=== PATIENT | female | born 1945 ===

== ENCOUNTER 2022-06-11 12:18 | Observation (INO) ==
[2022-06-11 13:10] LABS: Basophils % 0.4 %; Eosinophils # 0.1 K/mcL (0.0-0.6); Eosinophils % 1.4 %; Hematocrit 46.3 % (35.3-44.9); Hemoglobin 15.6 g/dL (11.5-15.4); Immature Granulocytes % 0.6 % (0-4); Lymphocytes % 14.5 %; Mean Corpuscular HGB Conc 33.7 g/dL (31.6-35.5); Mean Corpuscular Hemoglobin 31.2 pg (28.0-33.3); Mean Corpuscular Volume 92.6 fL (83.0-100.0); Mean Platelet Volume 9.5 fL (9.4-12.4); Monocytes # 0.5 K/mcL (0.0-1.3); Monocytes % 7.7 %; Neutrophils # 5.3 K/mcL (1.6-8.9); Platelet Count 218 K/mcL (140-400); Red Cell Distribution Width 12.5 % (11.5-14.5); Segmented Neutrophils % 75.4 %
[2022-06-11 15:41] LABS: Calcium 10.5 mg/dL (8.6-10.3); Potassium 3.9 mEq/L (3.5-5.1)
[2022-06-11] MEDS ORDERED: Naloxone 0.4 MG/ML INJ IVP PRN (15:53)
[2022-06-12 04:10] LABS: Basophils % 0.5 %; Eosinophils # 0.1 K/mcL (0.0-0.6); Hematocrit 41.3 % (35.3-44.9); Hemoglobin 14.1 g/dL (11.5-15.4); Immature Granulocytes % 0.5 % (0-4); Lymphocytes # 1.2 K/mcL (0.6-4.6); Lymphocytes % 14.6 %; Mean Corpuscular HGB Conc 34.1 g/dL (31.6-35.5); Mean Corpuscular Hemoglobin 31.8 pg (28.0-33.3); Mean Corpuscular Volume 93.2 fL (83.0-100.0); Mean Platelet Volume 9.8 fL (9.4-12.4); Monocytes # 0.8 K/mcL (0.0-1.3); Monocytes % 10.1 %; Neutrophils # 5.8 K/mcL (1.6-8.9); Platelet Count 218 K/mcL (140-400); Red Blood Count 4.43 M/mcL (3.82-4.97); Red Cell Distribution Width 12.6 % (11.5-14.5); Segmented Neutrophils % 73.3 %; White Blood Count 7.9 K/mcL (4.3-11.1)
[2022-06-12 04:35] LABS: Calcium 9.5 mg/dL (8.6-10.3); Chol/HDL Ratio 3.2 (0-4.9); Potassium 3.5 mEq/L (3.5-5.1)
[2022-06-12] MEDS ORDERED: carvediloL 6.25 MG TABLET PO SCH (08:00)
[2022-06-12] MEDS ORDERED: hydroCHLOROthiazide 25 MG TABLET PO SCH (09:00)
[2022-06-12] MEDS ORDERED: lisinopriL 20 MG TABLET PO SCH (09:00)
[2022-06-12] MEDS ORDERED: Regadenoson 0.4 MG/5 ML SYRINGE IVP ONE (09:00)
[2022-06-12] MEDS ORDERED: Aspirin Enteric Coated 81 MG Tablet PO SCH (09:00)
[2022-06-12] MEDS ORDERED: amLODIPine 5 MG TABLET PO SCH (09:00)
[2022-06-12 10:59] VITALS: BP 137/77; PULSE 67; TEMP 98.2; O2SAT 92
== END 2022-06-12 13:37 | disposition home or self-care (01) ==
LOC: 3BNU 12:18 → EMEROOARM 12:18 → SUATTDRO 17:16 → 3BNU 18:16
PROVIDERS: ADMIT Internal Medicine; ATTEND Internal Medicine

== ENCOUNTER 2022-07-22 09:20 | Observation (INO) ==
[2022-07-22] MEDS ORDERED: 0.9 % Sodium Chloride 1,000 ML ONE ×2 (09:42→09:53)
[2022-07-22] MEDS ORDERED: *HR* FentaNYL (PF) 100 MCG/2 ML VIAL ONE (09:51)
[2022-07-22] MEDS ORDERED: Nitroglycerin 1,000 MCG/5 ML VIAL IV ONE (09:52)
[2022-07-22] MEDS ORDERED: *HR* Midazolam HCl 2 MG/2 ML VIAL ONE (09:52)
[2022-07-22] MEDS ORDERED: Iopamidol - 370 200 ML INFUS..BTL ONE ×2 (09:52→13:28)
[2022-07-22] MEDS ORDERED: *HR* Heparin 10,000 UNIT/10 ML VIAL ONE (09:52)
[2022-07-22] MEDS ORDERED: Heparin 1,000 UNITS/500 mL 500 ML ONE ×3 (09:52→13:41)
[2022-07-22] MEDS: 0.9 % Sodium Chloride 1,000 ML IVC SCH ×2 (14:59→23:56)
[2022-07-22] MEDS ORDERED: Acetaminophen 325 MG TABLET PO PRN (16:27)
[2022-07-22] MEDS: carvediloL 6.25 MG TABLET PO SCH (17:54)
[2022-07-22] MEDS ORDERED: Nitroglycerin 0.4 MG TAB.SUBL SL PRN (17:58)
[2022-07-23 06:01] LABS: Hemoglobin 12.2 g/dL (11.5-15.4)
[2022-07-23 06:18] LABS: BUN/Creatinine Ratio 22 (6-26); Blood Urea Nitrogen 16 mg/dL (8-23)
[2022-07-23] MEDS: carvediloL 6.25 MG TABLET PO SCH (08:58)
[2022-07-23] MEDS: 0.9 % Sodium Chloride 1,000 ML IVC SCH (08:58)
[2022-07-23] MEDS ORDERED: hydroCHLOROthiazide 25 MG TABLET PO SCH (09:00)
[2022-07-23] MEDS ORDERED: lisinopriL 20 MG TABLET PO SCH (09:00)
[2022-07-23] MEDS ORDERED: Aspirin 81 MG TAB.CHEW PO SCH (09:00)
[2022-07-23] MEDS ORDERED: amLODIPine 5 MG TABLET PO SCH (09:00)
[2022-07-23 10:17] VITALS: BP 120/67; PULSE 61; TEMP 98; O2SAT 93
== END 2022-07-23 13:32 | disposition home or self-care (01) ==
LOC: 3BNU 09:20 → INVDIALAB 09:20 → 3BNU 14:26
PROVIDERS: ADMIT Internal Medicine Cardiovascular Disease; ATTEND Internal Medicine Cardiovascular Disease